=== PATIENT | female | born 1950 | race Caucasian/White ===

== ENCOUNTER 2018-02-05 00:38 | Emergency (ER) | payer OTHER ==
--- NOTE | 2018-02-05 01:00 | EDPHY ---
H & P Stated Complaint: c/o having delusions/hearing voices x 4 month, says thought time to be seen Source: Patient - Medical/Surgical History Hx Asthma: Yes Hx Chronic Respiratory Disease: No Hx Diabetes: No Hx Cardiac Disease: No Hx Renal Disease: No Hx Cirrhosis: No Hx Alcoholism: No Hx HIV/AIDS: No Hx Splenectomy or Spleen Trauma: No Other PMH: schizoaffective disorders, asthma, hypothyroid - Social History Smoking Status: Never smoked Time Seen by Provider: 02/05/18 00:57 HPI/ROS: HPI CHIEF COMPLAINT: Worsening delusions HISTORY OF PRESENT ILLNESS: Patient is a 67-year-old female, she has a history of schizoaffective disorder she presents emergency room by private vehicle after she drove here from her local residence, she states she is feeling more delusional and feeling very dark. She denies wanting to hurt herself or anybody else. Denies suicidal or homicidal ideation. She states she would like to speak to mental health. She is voluntary. Past Medical History: Schizoaffective disorder Past Surgical History: No recent surgical history Social History: Denies daily use of drugs alcohol tobacco. Family History: Noncontributory ROS REVIEW OF SYSTEMS: A comprehensive 10 point review of systems is otherwise negative aside from elements mentioned in the history of present illness. Exam Constitutional triage nursing summary reviewed, vital signs reviewed, awake/ alert. Eyes normal conjunctivae and sclera, EOMI, PERRLA. HENT normal inspection, atraumatic, moist mucus membranes, no epistaxis, neck supple/ no meningismus, no raccoon eyes. Respiratory clear to auscultation bilaterally, normal breath sounds, no respiratory distress, no wheezing. Cardiovascular rate normal, regular rhythm, no murmur, no edema, distal pulses normal. Gastrointestinal soft, non-tender, no rebound, no guarding, normal bowel sounds, no distension, no pulsatile mass. Genitourinary no CVA tenderness. Musculoskeletal no midline vertebral tenderness, full range of motion, no calf swelling, no tenderness of extremities, no meningismus, good pulses, neurovascularly intact. Skin pink, warm, & dry, no rash, skin atraumatic. Neurologic awake, alert and oriented x 3, AAOx3, moves all 4 extremities equally, motor intact, sensory intact, CN II-XII intact, normal cerebellar, normal vision, normal speech. Psychiatric worsening delusions. Heme/Lymph/Immune no lymphadenopathy. Differential Diagnosis: Includes but is not limited to in a particular order mood disorder, schizoaffective disorder, acute psych close this, grave disability. Medical Decision Making: Plan for this patient blood draw for medical clearance. Will have her speak with mental health. Re-evaluation: 0304: Patient has been evaluated by mental health. They would like inpatient psychiatric hospitalization on for this patient. Reason for admission history schizoaffective disorder worsening delusions. 0419: Patient seen evaluated by mental health. Seeking inpatient psychiatric placement. Patient is [facility] patient. Will search for inpatient psychiatric bed with [facility]. 0711AM: Patient signed over to Dr. Hancock 7am shift-change (Dandre العراقي) Constitutional: Initial Vital Signs Temperature (C) 36.5 C 02/05/18 00:43 Heart Rate 120 H 02/05/18 00:43 Respiratory Rate 18 02/05/18 00:43 Blood Pressure 153/106 H 02/05/18 00:43 O2 Sat (%) 94 02/05/18 00:43 O2 Delivery Mode Room Air Allergies/Adverse Reactions: No Known Allergies Allergy (Unverified 02/05/18 00:48) Home Medications: Medication Instructions Recorded Albuterol 02/05/18 Prozac 10 MG (*) 02/05/18 Stelazine 1MG (*) 02/05/18 Synthroid 02/05/18 Medical Decision Making ED Course/Re-evaluation: Patient was accepted at [facility] by Dr. Lo. Transfer paperwork completed. (Meng Hancock) - Data Points Laboratory Results: Laboratory Results 02/05/18 01:05 02/05/18 01:05 Medications Given: Discontinued Medications Lorazepam (Ativan) 1 mg PO ONCE ONE Stop: 02/05/18 02:43 Last Admin: 02/05/18 02:53 Dose: 1 mg Lorazepam (Ativan) 1 mg PO EDNOW ONE Stop: 02/05/18 09:36 Last Admin: 02/05/18 09:36 Dose: 1 mg Departure - Departure Disposition: Other Psych, Not [facility] Clinical Impression: Schizoaffective disorder Qualifiers: Schizoaffective disorder type: unspecified Qualified Code(s): F25.9 - Schizoaffective disorder, unspecified Condition: Fair Referrals: NONE *PRIMARY CARE P,. [Primary Care Provider] - As per Instructions
[2018-02-05 01:17] LABS: PLATELET COUNT 303 10^3/uL (150-400)
[2018-02-05] MEDS ORDERED: LORazepam 1 MG TAB ONE ×2 (02:42→09:33)
[2018-02-05] MEDS ORDERED: LORazepam 1 MG TAB PO ONE ×2 (02:42→09:35)
[2018-02-05 08:57] VITALS: BP 153/97
== END 2018-02-05 09:48 ==
LOC: EEVIPCON 00:38
DX: F25.9 Schizoaffective disorder, unspecified (principal); J45.909 Unspecified asthma, uncomplicated
CPT/HCPCS: 80305; G0480

== ENCOUNTER 2018-03-17 11:21 | Emergency (ER) | payer OTHER ==
--- NOTE | 2018-03-17 11:34 | EDPHY ---
H & P Stated Complaint: Pt tripped and fell; pain to L shoulder Time Seen by Provider: 03/17/18 11:31 HPI/ROS: HPI: This is a 67-year-old female who presents with Chief Complaint: Pt tripped and fell; pain to L shoulder Location: Left shoulder Quality: Injury Duration: 1 hr prior to arrival Signs and Symptoms: No bleeding, no radiation, no numbness, no weakness, no tingling, no LOC, + decreased range of motion, no swelling, + pain, no fever Timing: Acute Severity: 01/23 Context: Patient is right-hand dominant, presents with accidentally tripping over some wires in her house and falling onto her left shoulder. She reports that she felt immediate, moderate pain in the left lateral shoulder. The pain is nonradiating in nature. The pain is worsened with overhead activities. She has not taking anything for the pain. She had a friend drive her to the emergency room. Denies LOC/head injury/neck pain/dizziness/nausea/vomiting/ amnesia. She was ambulatory after the accident. She denies any dizziness/ fevers/urinary symptoms. She is able to move her left wrist and elbow without any difficulties. She does complain of some nausea but she believes that this is related to feeling pain and being extremely anxious. Patient started crying during the interview. Modifying Factors: None Comment: ROS: see HPI Constitutional: No fever, no chills, no weight loss Eyes: No blurred vision Respiratory: No shortness of breath, no cough Cardiovascular: No chest pain Gastrointestinal: No nausea, no vomiting no diarrhea Genitourinary: No dysuria Extremities: No myalgias Neurologic: No weakness, no numbness Skin: No rashes Hematologic: No bruising, no bleeding MEDICAL/SURGICAL/SOCIAL HISTORY: Medical history: schizoaffective disorders, asthma, hypothyroid, HTN Surgical history: Denies Social history: Lives alone. Retired. CONSTITUTIONAL: Elderly white female, awake and alert, no obvious distress HEENT: Atraumatic and normocephalic. NECK: supple, no midline tenderness, flexion 45 degrees, extension 45 degrees, right and left lateral flexion 45 degrees. No meningismus. Cardiovascular: Normal S1/S2, regular rate, regular rhythm, without murmur rub or gallop. PULMONARY/CHEST: Symmetrical and nontender. no crepitus. Clear to auscultation bilaterally. Good air movement. No accessory muscle usage. ABDOMEN: Soft, nondistended, nontender, no ecchymosis. BACK: No midline tenderness, no paraspinous spasm, deep tendon reflexes 2/2. EXTREMITIES: 2/2 pulses, strength 5/5, SHOULDER: Held at 90 degree flexion against chest; tenderness to palpation over the AC and SA joint; no deformity appreciated. Left ELBOW: Full extension to 180, flexion to 150, no tenderness over medial epicondyle, no tenderness over lateral epicondyle, no effusion. DIP/PIP/MCP flexion/extension intact with good light touch sensation. no deformities, no clubbing, no cyanosis or edema. NEUROLOGICAL: no focal neuro deficits. GCS 15. Light touch sensation intact. SKIN: Warm and dry, no erythema. no rash. Good capillary refill. Source: Patient Exam Limitations: No limitations - Personal History Current Tetanus Diphtheria and Acellular Pertussis (TDAP): Unsure - Medical/Surgical History Hx Asthma: Yes Hx Chronic Respiratory Disease: No Hx Diabetes: No Hx Cardiac Disease: No Hx Renal Disease: No Hx Cirrhosis: No Hx Alcoholism: No Hx HIV/AIDS: No Hx Splenectomy or Spleen Trauma: No Other PMH: schizoaffective disorders, asthma, hypothyroid. HTN - Social History Smoking Status: Never smoked Constitutional: Initial Vital Signs Temperature (C) 36.7 C 03/17/18 11:22 Heart Rate 96 03/17/18 11:22 Respiratory Rate 18 03/17/18 11:22 Blood Pressure 129/86 H 03/17/18 11:22 O2 Sat (%) 94 03/17/18 11:22 O2 Delivery Mode Room Air Allergies/Adverse Reactions: No Known Allergies Allergy (Verified 03/17/18 11:21) Home Medications: Medication Instructions Recorded Albuterol 02/05/18 Prozac 10 MG (*) 02/05/18 Stelazine 1MG (*) 02/05/18 Synthroid 02/05/18 Metoprolol Tartrate [Lopressor 25 25 mg PO 03/17/18 mg (*)] oxyCODONE/APAP 5/325 [Percocet 1 - 2 tab PO Q4H PRN #10 tab 03/17/18 5/325 (*)] Medical Decision Making - Diagnostics Imaging Results: Imaging Impressions Humerus X-Ray 03/17/18 11:34 Impression: Proximal left humeral fractures. 2. Left humerus, 2 views History: Pain post fall Findings: The proximal transverse humeral neck and greater tuberosity fractures are confirmed. The more distal humerus is normal. Impression: Normal distal humerus. Shoulder X-Ray 03/17/18 11:34 Impression: Proximal left humeral fractures. 2. Left humerus, 2 views History: Pain post fall Findings: The proximal transverse humeral neck and greater tuberosity fractures are confirmed. The more distal humerus is normal. Impression: Normal distal humerus. Chest X-Ray 03/17/18 11:51 Impression: 1. Minor T7 compression of unknown age 2. No rib or clavicle fracture identified. Procedures: Procedure: Splint placement. A left sling was applied by the emergency room factory maintenance technician. After application of the splint I returned and re-examined the patient. The splint was adequately immobilizing the joint and distal to the splint the patient's circulation and sensation was intact. ED Course/Re-evaluation: Given ibuprofen 800 mg and Zofran upon arrival. Left shoulder x-ray and left humerus x-ray ordered. 1140: Notified by assistant professor of radiology that patient now complaining of left lateral rib pain. Chest x-ray ordered X-rays reviewed my read show nondisplaced; left humeral neck fracture Placed in sling; pain controlled; Ortho follow-up; prescription for Percocet provided Patient has no back pain; reports that she fell in the past; suspect minor T7 compression fracture is old. No signs of neurovascular compromise/tenting of skin/compartment syndrome/ extremities and joints examined above and below area of concern and are neurovascularly intact. This patient was seen under the supervision of my secondary supervising physician. I evaluated care for this patient independently. Differential Diagnosis: Differential diagnosis includes but is not limited to rotator cuff injury, humerus fracture, brachial plexus injury, shoulder strain, clavicle fracture. - Data Points Medications Given: Discontinued Medications Acetaminophen (Tylenol) 650 mg PO EDNOW ONE Stop: 03/17/18 11:45 Last Admin: 03/17/18 11:48 Dose: 650 mg Ibuprofen (Motrin) 800 mg PO EDNOW ONE Stop: 03/17/18 11:36 Last Admin: 03/17/18 11:43 Dose: Not Given Ondansetron HCl (Zofran Odt) 4 mg PO EDNOW ONE Stop: 03/17/18 11:36 Last Admin: 03/17/18 11:38 Dose: 4 mg Departure - Departure Disposition: Home, Routine, Self-Care Clinical Impression: Fracture of neck of left humerus Qualifiers: Encounter type: initial encounter Fracture type: closed Qualified Code(s): S42.212A - Unspecified displaced fracture of surgical neck of left humerus, initial encounter for closed fracture Accidental fall Qualifiers: Encounter type: initial encounter Qualified Code(s): W19.XXXA - Unspecified fall, initial encounter Condition: Good Instructions: Oxycodone/Acetaminophen (By mouth), Arm Fracture in Adults (ED), How to Use a Sling (ED) Additional Instructions: Sleep semirecumbent (eg, in a reclining chair or propped up with pillows or a wedge in bed) with a sling. Follow-up with Orthopedics in 1 week at which time x-rays will be the repeated. They will discuss with you if conservative versus surgical treatment is needed. Wear your sling / except shower. FOLLOW-UP CARE Total healing time is typically 6 to 12 weeks for proximal humerus fractures. Early callus formation usually occurs at four to six weeks. Take Tylenol 650 mg every 4 hours and/or Ibuprofen 600 mg every 8 hours with food as needed for pain. Use Percocet every 6 hours as needed for severe/break through pain. Do not use Tylenol and Percocet concomitantly. Apply ice for 30 minutes at a time; 2-3 times per day for the next 1-2 days. Return to the ER immediately if you experience new or worsening pain, discoloration, numbness, tingling, or any other symptoms that concern you. Follow-Up: Please follow-up as noted above. Follow up sooner if your condition worsens or if you develop any new problems Call as soon as possible for an appointment. Be clear when you call for an appointment that this is an Emergency Department follow-up. Contact the Emergency Department if you are having trouble arranging follow up care. Our referrals are not based on your insurance network. When time allows, contact your insurance carrier to verify the referral physician is in your plan. If not, get a referral for an in-telecommunications network planner. Please ask us if you have any questions. Referrals: Alfredito Luke MD [Medical Doctor] - As per Instructions Prescriptions: oxyCODONE/APAP 5/325 [Percocet 5/325 (*)] 1 - 2 tab PO Q4H PRN #10 tab PRN Reason: Pain, Severe
[2018-03-17] MEDS ORDERED: ONDANSETRON DISINTEGRATING 4 MG TAB PO ONE (11:35)
[2018-03-17] MEDS ORDERED: IBUPROFEN 800 MG TAB PO ONE (11:35)
[2018-03-17] MEDS ORDERED: ACETAMINOPHEN 325 MG TAB PO ONE (11:44)
[2018-03-17 13:14] VITALS: BP 118/86
== END 2018-03-17 13:14 | disposition home or self-care (01) ==
DX: S42.212A Unspecified displaced fracture of surgical neck of left humerus, initial encounter for closed fracture (principal); I10 Essential (primary) hypertension; J45.909 Unspecified asthma, uncomplicated; W01.0XXA Fall on same level from slipping, tripping and stumbling without subsequent striking against object, initial encounter; Y92.009 Unspecified place in unspecified non-institutional (private) residence as the place of occurrence of the external cause

== ENCOUNTER 2018-08-25 07:33 | Inpatient (IN) | payer OTHER ==
--- NOTE | 2018-08-25 07:30 | EDPHY ---
H & P Time Seen by Provider: 08/25/18 07:32 Constitutional: Initial Vital Signs Temperature (C) 36.9 C 08/25/18 07:35 Heart Rate 91 08/25/18 07:35 Respiratory Rate 18 08/25/18 07:35 Blood Pressure 181/115 H 08/25/18 07:35 O2 Sat (%) 93 08/25/18 07:35 O2 Delivery Mode Nasal Cannula O2 (L/minute) 2 Allergies/Adverse Reactions: bacitracin [From Neosporin ([id number])] Allergy (Verified 08/25/18 07:37) neomycin [From Neosporin ([id number])] Allergy (Verified 08/25/18 07:37) polymyxin B [From Neosporin ([id number]-glj-[id number])] Allergy (Verified 08/25/18 07:37) Sulfa (Sulfonamide Antibiotics) Allergy (Verified 08/25/18 07:37) Home Medications: Medication Instructions Recorded Albuterol 02/05/18 Prozac 10 MG (*) 02/05/18 Stelazine 1MG (*) 02/05/18 Synthroid 02/05/18 Metoprolol Tartrate [Lopressor 25 25 mg PO 03/17/18 mg (*)] oxyCODONE/APAP 5/325 [Percocet 1 - 2 tab PO Q4H PRN #10 tab 03/17/18 5/325 (*)] Medical Decision Making - Diagnostics Imaging Results: Imaging Impressions Lumbar Spine X-Ray 08/25/18 07:35 Impression: 1. Mild compression fractures involving L2 and L3 centra, with diffuse bone demineralization. 2. Lrdmxijk-ee-dxufnm L4-L5 and L5-S1 degenerative disk space narrowing with facet hypertrophy. 3. Incompletely-evaluated increased soft tissue attenuation in the posterior medial left lower quadrant of the abdomen. If there is further clinical concern regarding the patient's symptoms, CT imaging could be considered. Sacrum and Coccyx (3 Views) at 7:24 AM: There appears to be a nondisplaced cortical fracture along the dorsal upper sacrum seen on the lateral view. The sacral arcuate lines are well-contoured. There is no SI joint or symphysis pubis diastases. Impression: Suspicious for a nondisplaced upper dorsal cortical coccygeal fracture. Portable AP Supine Pelvis, at 7:28 AM: The bones are mildly demineralized. Each femoral head is well-seated within its respective acetabulum, with no fracture or dislocation identified. There is a mild lower levolumbar curvature, and there is a mild cortical endplate compression deformity again noted along the right L3 level. The iliac crests are well-contoured. The ischial pubic rami are intact. Impression: There is no acute abnormality with respect to the hips. Findings were discussed with Sin Cortes MD at 8:32, on 08/25/2018. He has requested CT imaging of the lumbar spine for further assessment. Pelvis X-Ray 08/25/18 07:35 Impression: 1. Mild compression fractures involving L2 and L3 centra, with diffuse bone demineralization. 2. Zsjwhbya-jw-jgdflu L4-L5 and L5-S1 degenerative disk space narrowing with facet hypertrophy. 3. Incompletely-evaluated increased soft tissue attenuation in the posterior medial left lower quadrant of the abdomen. If there is further clinical concern regarding the patient's symptoms, CT imaging could be considered. Sacrum and Coccyx (3 Views) at 7:24 AM: There appears to be a nondisplaced cortical fracture along the dorsal upper sacrum seen on the lateral view. The sacral arcuate lines are well-contoured. There is no SI joint or symphysis pubis diastases. Impression: Suspicious for a nondisplaced upper dorsal cortical coccygeal fracture. Portable AP Supine Pelvis, at 7:28 AM: The bones are mildly demineralized. Each femoral head is well-seated within its respective acetabulum, with no fracture or dislocation identified. There is a mild lower levolumbar curvature, and there is a mild cortical endplate compression deformity again noted along the right L3 level. The iliac crests are well-contoured. The ischial pubic rami are intact. Impression: There is no acute abnormality with respect to the hips. Findings were discussed with Sin Cortes MD at 8:32, on 08/25/2018. He has requested CT imaging of the lumbar spine for further assessment. Sacrum and Coccyx X-Ray 08/25/18 07:35 Impression: 1. Mild compression fractures involving L2 and L3 centra, with diffuse bone demineralization. 2. Pywojerh-io-vqmpmq L4-L5 and L5-S1 degenerative disk space narrowing with facet hypertrophy. 3. Incompletely-evaluated increased soft tissue attenuation in the posterior medial left lower quadrant of the abdomen. If there is further clinical concern regarding the patient's symptoms, CT imaging could be considered. Sacrum and Coccyx (3 Views) at 7:24 AM: There appears to be a nondisplaced cortical fracture along the dorsal upper sacrum seen on the lateral view. The sacral arcuate lines are well-contoured. There is no SI joint or symphysis pubis diastases. Impression: Suspicious for a nondisplaced upper dorsal cortical coccygeal fracture. Portable AP Supine Pelvis, at 7:28 AM: The bones are mildly demineralized. Each femoral head is well-seated within its respective acetabulum, with no fracture or dislocation identified. There is a mild lower levolumbar curvature, and there is a mild cortical endplate compression deformity again noted along the right L3 level. The iliac crests are well-contoured. The ischial pubic rami are intact. Impression: There is no acute abnormality with respect to the hips. Findings were discussed with Sin Cortes MD at 8:32, on 08/25/2018. He has requested CT imaging of the lumbar spine for further assessment. Lumbar Spine CT 08/25/18 08:23 Impression: 1. Acute mild/moderate cortical endplate fractures at the L2 and L3 centra, with no dorsal retropulsion or posterior malalignment. 2. Multilevel degenerative changes throughout the lumbar spine, as above- detailed. 3. Age-indeterminate coccygeal fracture deformity at the C1 level. 4. Left lower retroperitoneal indeterminate coarse calcifications at the root of the mesentery, which could be related to a chronic retractile calcific mesenteritis/panniculitis, although a carcinoid tumor cannot be excluded. Biochemical testing for carcinoid may be of benefit, and formal contrast enhanced CT imaging of the abdomen and pelvis could be considered in follow-up. Findings were discussed with Sin Cortes MD at 9:14, on 08/25/2018. Imaging: Discussed imaging studies w/ freight caller Radiologist, I viewed and interpreted images myself ED Course/Re-evaluation: CHIEF COMPLAINT: Fall, sacral pain HISTORY OF PRESENT ILLNESS: The patient is a 67 y/o female with a history of schizoaffective disorders and hypertension arriving via EMS after a fall at 6:00, 1.5 hours ago. Per EMS the patient was sitting on her toilet when she slipped off and landed on her sacrum. She denies head injury, loss of consciousness, numbness, paresthesias, urinary or bowel complaints. Since the fall she has had sacral pain. Since arriving in the emergency department the pain has started to migrate into her lower back. She is currently stating "I need something for shock". She does take a baby aspirin daily but is not anticoagulated. No headache, chest pain, shortness of breath, abdominal pain, fever. REVIEW OF SYSTEMS: A comprehensive 10 system review of systems is otherwise negative aside from elements mentioned in the history of present illness and medical decision making. PHYSICAL EXAM: HR, BP, O2 Sat, RR. Temp noted General Appearance: Alert, well hydrated, appropriate, and non-toxic appearing. Head: Atraumatic without scalp tenderness or obvious injury Eyes: Pupils equal, round, reactive to light and accommodation, EOMI, no trauma , no injection. Ears: Clear bilaterally, no perforation, normal landmarks Nose: Atraumatic, no rhinorrhea, clear. Throat: There is no erythema or exudates, no lesions, normal tonsils, mucus membranes moist. Neck: Supple, 2+ carotid upstroke, nontender, no lymphadenopathy. Respiratory: No retractions, no distress, no wheezes, and no accessory muscle use. Lungs are clear to auscultation bilaterally. Cardiovascular: Regular rate and rhythm, no murmurs, rubs, or gallops. Bilateral carotid, radial, dorsalis pedis, and posterior tibial pulses intact. Good capillary refill all extremities. Gastrointestinal: Abdomen is soft, nontender, non-distended, no masses, no rebound, no guarding, no peritoneal signs. Musculoskeletal: Normal active ROM of all extremities, atraumatic. Minor tenderness to the sacral spine. Neurological: Alert, appropriate, and interactive. The patient has normal DTRs and non-focal cranial nerves, motor, sensory, and cerebellar exam. Skin: No rashes, good turgor, no nodules on palpation. Past medical history: schizoaffective disorders, asthma, hypothyroid, hypertension Past surgical history: Denies Family history: Denies Social history: Lives alone in [place], single, not employed, PCP at [facility] DIAGNOSTICS/PROCEDURES/CRITICAL CARE TIME: Lumbar/sacral x-ray: Possible L2/[address]: L2/3 compression fracture. There is an indeterminant calcification in the mesentery below the pancreas that is possibly a carcinoid tumor. DIFFERENTIAL DIAGNOSIS: The differential diagnosis for the patient's back pain included but was not limited to musculoskeletal pain, epidural abscess, herniated disk, spinal fracture, and intra-abdominal causes including urinary system. MEDICAL DECISION MAKING: The patient is a 67 y/o female with a history of schizoaffective disorders and hypertension arriving via EMS after a fall at 6:00, 1.5 hours ago. She landed on her sacrum and has since had sacral and lower back pain. On exam she is moving her legs everywhere and wiggling her toes without difficulty. Due to the mechanism of the fall and the patient's complaint. Lumbar and sacral x-ray ordered. 0750: Patient is still complaining of pain and states that she normally takes Hycodan elixir and Oxycodan. 25 mcg IV Fentanyl administered. 0823: I reviewed patient's x-ray which reveals a possible L2/3 compression fracture; lumbar spine CT ordered. 0830: I spoke with Dr. Hansen, radiologist, who agrees with my x-ray findings. 0850: I reviewed patient's CT findings which confirm the L2/3 compression fracture. 0859: I consulted with Dr. Ribera, neurosurgeon, regarding patient's CT findings ; he has advised placing the patient in a Jewitt brace. 0915: I spoke with Dr. Hansen, regarding the patient's CT findings. There is an indeterminant calcification in the mesentery below the pancreas that is possibly a carcinoid tumor. She will need biochemical testing performed by her PCP at [facility]. 0926: I spoke with Caren, the PCP dining chair seat cushion trimmer from [facility], regarding this patient. She will ensure that the patient has the proper follow up testing with her PCP. 0927: Reassessed patient and discussed CT findings. I have advised her to follow up with Dr. Ribera in his clinic. Return precautions provided; patient is comfortable with this plan. 1125: I spoke with Danielle, from case management, regarding this patient. 1158: Sheldon has arrived to the emergency department to fit the patient with a Jewitt brace. 10mg PO Oxycodone administered. She is safe to be discharged after she is fitted with the brace. 1230: manager commercial spoke with me and reports that the patient cannot walk due to the pain. We will admit and transfer the patient to [facility]. 1233: I consulted with Caren from [facility], who would like the patient to be admitted to this hospital. 1240: I consulted with the hospitalist service, Dr. Ribera accepts admission of this patient. - Data Points Medications Given: Discontinued Medications Fentanyl (Sublimaze) 25 mcg IVP EDNOW ONE Stop: 08/25/18 07:52 Last Admin: 08/25/18 07:53 Dose: 25 mcg Ondansetron HCl (Zofran) 4 mg IVP EDNOW ONE Stop: 08/25/18 08:13 Last Admin: 08/25/18 08:15 Dose: 4 mg Oxycodone HCl (Oxycodone Ir) 10 mg PO EDNOW ONE Stop: 08/25/18 12:00 Last Admin: 08/25/18 12:00 Dose: 5 mg Departure - Departure Disposition: Home, Routine, Self-Care Clinical Impression: Unable to ambulate Compression fracture of L2 Qualifiers: Encounter type: initial encounter Fracture type: closed Qualified Code(s): S32.020A - Wedge compression fracture of second lumbar vertebra, initial encounter for closed fracture Compression fracture of L3 lumbar vertebra Qualifiers: Encounter type: initial encounter Fracture type: closed Qualified Code(s): S32.030A - Wedge compression fracture of third lumbar vertebra, initial encounter for closed fracture Condition: Fair Instructions: Vertebral Compression Fracture (ED) Additional Instructions: 1. Where the Jewitt brace as prescribed. 2. Follow up with Dr. Ribera, neurosurgeon, in his office in the next week. 3. Return to the emergency department for severe pain, fever, numbness, difficulty walking, change in location or nature of pain or other concerns. Referrals: Gabriele Ribera MD [Medical Doctor] - As per Instructions [facility] ,. [Edm Groups for Call Sched] - As per Instructions Report Scribed for: Sin Cortes Report Scribed by: Melissa Carty Date of Report: 08/25/18 Time of Report: 07:31
[2018-08-25] MEDS ORDERED: fentaNYL 100 MCG/2 ML INJ IVP ONE (07:51)
[2018-08-25] MEDS ORDERED: ONDANSETRON 4 MG/2 ML VIAL IVP ONE (08:12)
[2018-08-25] MEDS ORDERED: oxyCODONE IR 5 MG TAB PO ONE (11:59)
[2018-08-25] MEDS ORDERED: ONDANSETRON 4 MG/2 ML VIAL IVP PRN (14:13)
[2018-08-25] MEDS ORDERED: ACETAMINOPHEN 325 MG TAB PO PRN (14:13)
[2018-08-25] MEDS ORDERED: FLUTICASONE NASAL 120 SPRAYS/16 GM MDI EACHNARE PRN (14:15)
--- NOTE | 2018-08-25 14:41 | PDGENHP ---
History and Physical - Chief Complaint fall - History of Present Illness 67yo F with schizoaffective d/o, osteopenia presents after fall this morning with severe lower back pain. Got up to go to the bathroom around 6am and felt fine. While in the bathroom she slipped and fell onto her tailbone. She was in severe pain and pushed her Life Alert bracelet and EMS arrived. She was unable to ambulate due to the pain but denies lower extremity weakness/numbness. She did not strike her head and does not believe she lost consciousness however she does have some amnesia to the whole event. Denies urinary/bowel incontinence. Of note, she broke her left arm after fall from standing height in March. This was non-surgically managed. She had DEXA scan at [place] after this which reportedly showed osteopenia. In the ED, imaging demonstrated acute L2-3 vertebral compression fractures. Neurosurgery was consulted who recommended Jewitt brace. Patient was about to be discharged to home with follow up but was unable to ambulate 2/2 back pain. She also felt dizzy when standing which she attributes to the oxycodone she received. She is being admitted for pain management. History Information - Allergies/Home Medication List Allergies/Adverse Reactions: bacitracin [From Neosporin ([id number])] Allergy (Verified 08/25/18 07:37) neomycin [From Neosporin ([id number])] Allergy (Verified 08/25/18 07:37) polymyxin B [From Neosporin ([id number]-pce-stkyo)] Allergy (Verified 08/25/18 07:37) Sulfa (Sulfonamide Antibiotics) Allergy (Verified 08/25/18 07:37) Home Medications: Albuterol [Proventil Inhaler HFA (*)] 2 puffs IH BID PRN 02/05/18 [Last Taken Unknown] FLUoxetine [Prozac 10 MG (*)] 20 mg PO DAILY 02/05/18 [Last Taken 08/24/18] Trifluoperazine HCl [Stelazine 5MG (*)] 7.5 mg PO HS 02/05/18 [Last Taken ] Aspirin [Aspirin 81mg (*)] 81 mg PO HS 08/25/18 [Last Taken 08/24/18] Beclomethasone Qvar 80 [Qvar 80 Redihaler (*)] 2 inh IH BID 08/25/18 [Last Taken Unknown] Fluticasone Nasal [Flonase Nasal [place] (RX)] 2 sprays EACHNARE DAILY PRN [Last Taken Unknown] Herbals/Supplements -Info Only 1 ea PO DAILY 08/25/18 [Last Taken Unknown] Hydrochlorothiazide [HCTZ (*)] 12.5 mg PO DAILY 08/25/18 [Last Taken 08/24/18] Levothyroxine [Synthroid 75 mcg (*)] 75 mcg PO DAILY06 08/25/18 [Last Taken 07/03] Omeprazole 20 mg PO DAILY 08/25/18 [Last Taken Unknown] I have personally reviewed and updated: family history, medical history, social history, surgical history - Past Medical History Additional medical history: schizoaffective disorder, HTN, osteopenia, left humerus fracture (non-displaced), asthma - Surgical History Additional surgical history: hernia surgery - Family History Additional family history: no family history of osteoporosis or fractures - Social History Smoking Status: Never smoked Alcohol Use: None Drug Use: None Additional social history: Lives independently Review of Systems Review of Systems: ROS: 10pt was reviewed & negative except for what was stated in HPI & below Physical Exam Physical Exam: Temp Pulse Resp BP Pulse Ox 36.6 C 87 16 147/90 H 92 08/25/18 13:37 08/25/18 13:37 08/25/18 13:37 08/25/18 13:37 08/25/18 13:37 O2 (L/minute) 2.5 Constitutional: no apparent distress, appears nourished, not in pain Eyes: PERRL, anicteric sclera, EOMI Ears, Nose, Mouth, Throat: moist mucous membranes, hearing normal, ears appear normal, no oral mucosal ulcers Cardiovascular: regular rate and rhythym, no murmur, rub, or gallop, No edema Respiratory: no respiratory distress, no rales or rhonchi, clear to auscultation Gastrointestinal: normoactive bowel sounds, soft, non-tender abdomen, no palpable masses Genitourinary: no bladder fullness, no bladder tenderness Skin: warm, normal color, no rashes or abrasions, no fluctuance, no induration, No mottled Musculoskeletal: full muscle strength, no muscle tenderness, normal joint ROM, no joint effusions Neurologic: AAOx3, other (5/5 strength in BLE, sensation to light touch intact, no ankle clonus, 2+ b/l pateler reflexes) Psychiatric: interacting appropriately, not anxious, not encephalopathic, thought process linear Assessment & Plan Assessment: 67yo F with schizoaffective d/o, osteopenia presents after fall this morning with severe lower back pain. Imaging shows acute L2-3 vertebral compression fractures. She is being admitted for pain control as she is unable to ambulate. Plan: #Acute L2-3 vertebral compression fractures: Neurologically intact - Neurosurgery consulted, no surgical intervention - Jewitt brace - PT/OT - Pain control - If not improving, consider vertebroplasty/kyphoplasty #Fall: Mechanical in nature. No LOC or headstrike. Will get PT/OT as above. #Osteoporosis: New diagnosis with compression fractures from standing height. - Recommend discussing oral bisphosphonate therapy with PCP - Checking vitamin D level, will likely need vit D/calcium supplementation at discharge - She is on an inhaled steroid for her asthma, may need to consider dc'ing this if able #Mesenteric calcification: Left lower retroperitoneal. Noted on CT. DDx includes chronic calcific mesenteritis/panniculitis vs carcinoid tumor - Recommend f/u with PCP for biochemical testing to r/o carcinoid #Acute hypoxemic resp insufficiency: On 2L. Related to atelectasis from splinting. Wean as able. #Asthma: No acute flare. Continue home inhalers. #HTN: Home meds. #Schizoaffective d/o: Compensated. Home meds. #Hypothyroidism: Checking TSH, continue LT4. VTE ppx: LMWH Code: full Diet: regular Dispo: Admit under observation for pain management. Unsafe to discharge as unable to ambulate.
[2018-08-25 14:48] LABS: PLATELET COUNT 330 10^3/uL (150-400)
--- NOTE | 2018-08-25 15:49 | ASMTCMCOM ---
CM Note CM Note Notes: Pt presented to the ED via EMS after having a fall at home this morning. Per EMS, pt had slipped off of the toilet and landed on her sacrum. Pt admitted for acute L2-L3 compression fracture and inability to ambulate due to pain. Pt was fit w/a Jewitt brace while in the ED. Per chart review, if pt's pain or ability to ambulate does not improve, may consider vertebroplasty/kyphoplasty. [facility] Pt has a history of schizoaffective disorder, hypothyroidism, HTN, osteopenia, and asthma. In March 2018, pt had a mechanical fall that resulted in left humeral neck fracture. Pt had reported at that time that she has had had previous falls as well. We discussed the possibility of pt returning home w/a combination of skilled and non-skilled HC but pt states she would not be able to afford the non-skilled help she feels she needs, and she overall does not feel safe returning home even if her elderly mother, Pauline Soliman (c:[phone]) came to stay with her overnight. Pauline lives in [place] and is currently on her way to [facility]. Pt has [employer] insurance and was hoping to be transferred for admission to [facility] but per ED MD who spoke w/Caren at [facility], they did not approve the transfer but they did approve pt to be admitted at [facility]. PT/OT ramoneals ordered. Exact DC needs TBD but anticipate pt to either DC home w/HC or to SNF rehab. CM to follow. Date Signed: 08/25/2018 03:48 PM Electronically Signed By:Danielle Johnson RN
[2018-08-25] MEDS: oxyCODONE IR 5 MG TAB PO PRN ×2 (16:15→21:04)
[2018-08-25] MEDS: IBUPROFEN 600 MG TAB PO PRN ×2 (16:16→23:08)
[2018-08-25] MEDS: ONDANSETRON DISINTEGRATING 4 MG TAB PO PRN (16:16)
[2018-08-25] MEDS ORDERED: HYDROCHLOROTHIAZIDE 25 MG TAB PO SCH (16:46)
[2018-08-25] MEDS: TRIFLUOPERAZINE HCL 5 MG TAB PO SCH (21:00)
[2018-08-25] MEDS: ASPIRIN 81 MG CHEWABLE TAB PO SCH (21:00)
[2018-08-25] MEDS: BECLOMETHASONE QVAR 80 REDIHALER 120 INH/10.6 GM MDI IH SCH (21:07)
[2018-08-26] MEDS: oxyCODONE IR 5 MG TAB PO PRN ×5 (04:33→23:26)
[2018-08-26] MEDS ORDERED: LEVOTHYROXINE 75 MCG TAB PO SCH (06:00)
[2018-08-26] MEDS ORDERED: CHOLECALCIFEROL VIT D3 50,000 UNIT CAP PO ONE (08:07)
[2018-08-26] MEDS ORDERED: BISACODYL 10 MG SUPP PR PRN (08:08)
[2018-08-26] MEDS ORDERED: POLYETHYLENE GLYCOL 3350 17 GM PKT PO PRN (08:08)
[2018-08-26] MEDS ORDERED: LACTULOSE 20 GM/30 ML UDCUP PO PRN (08:08)
[2018-08-26] MEDS ORDERED: MAGNESIUM HYDROXIDE 30 ML UDCUP PO PRN (08:08)
[2018-08-26] MEDS ORDERED: HYDROCHLOROTHIAZIDE 25 MG TAB PO SCH (09:00)
[2018-08-26] MEDS: ENOXAPARIN 40 MG/0.4 ML SYR SC SCH (09:24)
[2018-08-26] MEDS: SENNOSIDES/DOCUSATE SODIUM TAB PO SCH ×2 (09:24→20:57)
[2018-08-26] MEDS: PANTOPRAZOLE SODIUM 40 MG TAB PO SCH (09:24)
[2018-08-26] MEDS: HYDROCHLOROTHIAZIDE 25 MG TAB PO SCH (09:24)
[2018-08-26] MEDS: FLUoxetine 10 MG CAP PO SCH (09:25)
[2018-08-26] MEDS: ALBUTEROL 60 PUFFS/8 GM MDI IH PRN (09:38)
[2018-08-26] MEDS: BECLOMETHASONE QVAR 80 REDIHALER 120 INH/10.6 GM MDI IH SCH ×2 (09:38→21:03)
[2018-08-26] MEDS: ACETAMINOPHEN 325 MG TAB PO SCH ×3 (13:37→23:27)
--- NOTE | 2018-08-26 13:55 | HOSPPROG ---
Hospitalist Progress Note Assessment/Plan: 67yo F with schizoaffective d/o, osteopenia presents after mechanical fall at home with severe lower back pain. Imaging shows acute L2-3 vertebral compression fractures. #Acute L2-3 vertebral compression fractures: Neurologically intact - Neurosurgery consulted, no surgical intervention - [place] brace - PT/OT - Pain control OK with current meds - If not improving, consider vertebroplasty/kyphoplasty (which she declines currently) -should would prefer SNF if possible bc lives alone #Fall: Mechanical -fall risk as second fall/fracture this yr #Osteoporosis: New diagnosis with compression fractures from standing height. -recommend treatment as outpt bc of chronic steroid use -vitamin D level low, supplement ordered weekly [id number] #Mesenteric calcification: Left lower retroperitoneal. Noted on CT. DDx includes chronic calcific mesenteritis/panniculitis vs carcinoid tumor - Recommend f/u with PCP for biochemical testing to r/o carcinoid as outpt #Acute hypoxemic resp insufficiency -on 2L NC -encourage deep breathing/IS -wean O2 #Asthma: No acute flare. Continue home inhalers. #HTN: Home meds. #Schizoaffective d/o: Compensated. Home meds. #Hypothyroidism -TSH elevated -increased replacement dose MARIAMA -PPI, add on H2 DVT prophy- lovenox Code: full PCP- [facility] Dispo: Admit under observation for pain management. Unsafe to discharge as unable to ambulate. Need to review with [place] if change to admit needed/SNF needed Subjective: Says pain improved with meds but needs help and is scared to go home alone. No SOB/d/CP. Has had some mild nausea, no V. Has MARIAMA. No problems with these pain meds prev causing N. Objective: Vital Signs Temp Pulse Resp BP Pulse Ox 98.3 F 86 13 131/79 H 96 08/26/18 11:26 08/26/18 11:26 08/26/18 11:26 08/26/18 11:26 08/26/18 11:26 Laboratory Results 08/25/18 14:15 08/25/18 14:15 08/25/18 08/26/18 08/27/18 11:59 11:59 11:59 Intake Total 2100 Output Total 3300 Balance -1200 - Physical Exam Constitutional: no apparent distress, appears nourished Eyes: PERRL, anicteric sclera Ears, Nose, Mouth, Throat: moist mucous membranes, hearing normal Cardiovascular: regular rate and rhythym, no murmur, rub, or gallop Respiratory: no respiratory distress, no rales or rhonchi, clear to auscultation Gastrointestinal: normoactive bowel sounds, soft, non-tender abdomen, no palpable masses Skin: warm, normal color Musculoskeletal: other (in [place] brace) Psychiatric: interacting appropriately, not encephalopathic, anxious ICD10 Worksheet Patient Problems: Problems Problem Status Onset Compression fracture of L2 Acute Compression fracture of L3 lumbar vertebra Acute Unable to ambulate Acute
[2018-08-26] MEDS: FAMOTIDINE 20 MG TAB PO SCH ×2 (17:16→20:58)
[2018-08-26] MEDS: IBUPROFEN 600 MG TAB PO PRN (18:52)
[2018-08-26] MEDS: ASPIRIN 81 MG CHEWABLE TAB PO SCH (20:57)
[2018-08-26] MEDS: TRIFLUOPERAZINE HCL 5 MG TAB PO SCH (20:58)
[2018-08-27] MEDS: LEVOTHYROXINE 88 MCG TAB PO SCH (04:58)
[2018-08-27] MEDS: ACETAMINOPHEN 325 MG TAB PO SCH ×4 (04:59→23:21)
[2018-08-27] MEDS: IBUPROFEN 600 MG TAB PO PRN ×2 (04:59→17:00)
[2018-08-27] MEDS: oxyCODONE IR 5 MG TAB PO PRN ×5 (05:00→21:55)
--- NOTE | 2018-08-27 08:28 | HOSPPROG ---
Hospitalist Progress Note Assessment/Plan: #Acute L2-3 fracture -no surgical intervention, Jewitt brace -spoke with at [facility]; not candidate for rehab. They will arrange home therapies, DEMOND, RN -add Debbie. JEANNA Ribera #Osteoporosis -high-dose Vit D #Asthma: no exacerbation #Acute hypoxic resp failure #Schizoaffective d/o: home meds #Mesenteric calcification #Hypothyroidism: LT4 #HTN: BP ok here, not on outpatient meds #Diet: regular #Disp: DC home tomorrow if pain well-controlled Subjective: c/o back spasm this morning Objective: Vital Signs Temp Pulse Resp BP Pulse Ox 36.4 C 82 15 109/73 94 08/27/18 08:00 08/27/18 08:00 08/27/18 08:00 08/27/18 08:00 08/27/18 08:00 Laboratory Results 08/25/18 14:15 08/25/18 14:15 08/26/18 08/27/18 08/28/18 05:59 05:59 05:59 Intake Total 2100 2400 Output Total 2700 1800 Balance -600 600 - Time Spent With Patient Time Spent with Patient: greater than 35 minutes Time Spent with Patient: Greater than 35 minutes spent on this patients care, greater than 50% of time spent counseling, educating, and coordinating care regarding the above mentioned plan. - Physical Exam Constitutional: no apparent distress Eyes: PERRL Ears, Nose, Mouth, Throat: moist mucous membranes Cardiovascular: regular rate and rhythym Respiratory: no respiratory distress Gastrointestinal: normoactive bowel sounds Musculoskeletal: other (Jewitt brace in place) Neurologic: CN II-XII Intact Psychiatric: anxious ICD10 Worksheet Patient Problems: Problems Problem Status Onset Compression fracture of L2 Acute Compression fracture of L3 lumbar vertebra Acute Unable to ambulate Acute
[2018-08-27] MEDS: ONDANSETRON DISINTEGRATING 4 MG TAB PO PRN (08:29)
[2018-08-27] MEDS: ENOXAPARIN 40 MG/0.4 ML SYR SC SCH (08:30)
[2018-08-27] MEDS: FLUoxetine 10 MG CAP PO SCH (09:39)
[2018-08-27] MEDS: HYDROCHLOROTHIAZIDE 25 MG TAB PO SCH (09:39)
[2018-08-27] MEDS: SENNOSIDES/DOCUSATE SODIUM TAB PO SCH ×2 (09:40→20:42)
[2018-08-27] MEDS: PANTOPRAZOLE SODIUM 40 MG TAB PO SCH (09:40)
[2018-08-27] MEDS: FAMOTIDINE 20 MG TAB PO SCH ×2 (09:40→20:41)
[2018-08-27] MEDS: BECLOMETHASONE QVAR 80 REDIHALER 120 INH/10.6 GM MDI IH SCH (10:23)
[2018-08-27] MEDS: ALBUTEROL 60 PUFFS/8 GM MDI IH PRN (10:23)
[2018-08-27] MEDS: METHOCARBAMOL 750 MG TAB PO PRN (15:14)
[2018-08-27] MEDS: PSYLLIUM METAMUCIL 1 PKT PO SCH (15:16)
--- NOTE | 2018-08-27 15:51 | ASMTCMCOM ---
CM Note CM Note Notes: [facility] denied my SNF referral for patient, I requested an appeal, and they denied this as well. I met with patient and explained this. I told her that we would help work toward discharge home with PT/OT and pain management while she is still here and order home care upon d/c. She was not pleased, nor was her mother, who I also spoke to. I offered Meals on Wheels; CM will need to order this when we know the d/c date. In the meantime, patient will work with nursing and therapies on being safe at home. Referral for home care sent to [facility] - we will request PT/OT/RN/CATERER'S AIDE/[employer]ER [employer]. Case Management will follow. Date Signed: 08/27/2018 03:51 PM Electronically Signed By:Iram Renner RN
--- NOTE | 2018-08-27 17:24 | PDMN ---
Medical Necessity Medical necessity: [facility] musculoskeletal disease Lumbar compression fx. 2 days status changed to INPT 08/27/18 for ongoing pain, back spasm req further monitoring.
[2018-08-27] MEDS: ASPIRIN 81 MG CHEWABLE TAB PO SCH (20:41)
[2018-08-27] MEDS: TRIFLUOPERAZINE HCL 5 MG TAB PO SCH (20:42)
[2018-08-28] MEDS: METHOCARBAMOL 750 MG TAB PO PRN ×3 (00:57→23:06)
[2018-08-28] MEDS: BECLOMETHASONE QVAR 80 REDIHALER 120 INH/10.6 GM MDI IH SCH ×3 (01:01→21:14)
[2018-08-28] MEDS: oxyCODONE IR 5 MG TAB PO PRN ×2 (04:28→07:56)
[2018-08-28] MEDS: LEVOTHYROXINE 88 MCG TAB PO SCH (05:19)
[2018-08-28] MEDS: ONDANSETRON DISINTEGRATING 4 MG TAB PO PRN ×2 (05:29→09:49)
[2018-08-28] MEDS: ACETAMINOPHEN 325 MG TAB PO SCH ×4 (06:13→23:06)
[2018-08-28] MEDS: ENOXAPARIN 40 MG/0.4 ML SYR SC SCH (07:58)
[2018-08-28] MEDS: ALBUTEROL 60 PUFFS/8 GM MDI IH PRN ×2 (09:01→21:14)
[2018-08-28] MEDS: FAMOTIDINE 20 MG TAB PO SCH ×2 (09:22→23:56)
[2018-08-28] MEDS: PSYLLIUM METAMUCIL 1 PKT PO SCH (09:22)
[2018-08-28] MEDS: PANTOPRAZOLE SODIUM 40 MG TAB PO SCH (09:22)
[2018-08-28] MEDS: SENNOSIDES/DOCUSATE SODIUM TAB PO SCH ×2 (09:22→23:57)
[2018-08-28] MEDS: HYDROCHLOROTHIAZIDE 25 MG TAB PO SCH (10:17)
[2018-08-28] MEDS: FLUoxetine 10 MG CAP PO SCH (10:17)
--- NOTE | 2018-08-28 10:44 | PDIAF ---
- Diagnosis Diagnosis: compression fracture Code Status: Full Code - Medication Management Discharge Medications: electronically signed and located in the Home Medication List. - Orders Services needed: Home Care, Registered Nurse, Certified Drag Down, Physical Therapy, Occupational Therapy Home Care Face to Face: I certify that this patient was under my care and that I had the required [id number] encounter meeting the encounter requirements on the discharge day. My findings support the fact that the patient is homebound as defined in Home Care Face to Face Continued: CMS Chapter 7 Medicare Benefits Manual 30.1.1 , The condition of the patient is such that there exists a normal inability to leave home and consequently, leaving home would require a considerable and taxing effort. Diet Recommendation: no restrictions on diet Diet Texture: Regular Texture Diet Additional Instructions: 1. Wear the Jewitt brace as prescribed. 2. Follow up with Dr. Ribera, neurosurgeon, in his office in the next week. 3. Return to the emergency department for severe pain, fever, numbness, difficulty walking, change in location or nature of pain or other concerns. - Follow Up Care Current Providers and Referrals: [facility] ,. [Edm Groups for Call Sched] - As per Instructions
--- NOTE | 2018-08-28 11:13 | ASMTLACE ---
CHIQUITA Length of stay for Answers: 2 days current admission Acuity / Level of Answers: No Care: Did the patient have an inpatient admission? Comorbidities - select Answers: Chronic pulmonary disease all that apply History of falls Other Notes: HTN, hypothyroid, asthm a, osteopenia # of Emergency department Answers: 3-4 visits in the last 6 months Social determinants Answers: Mental health diagnosis (anxiety, depression, pers onality disorders, etc.) Score: 14 Date Signed: 08/28/2018 11:12 AM Electronically Signed By:TYESHA Verdugo
--- NOTE | 2018-08-28 11:26 | GDS ---
DISCHARGE DIAGNOSES: 1. Acute L2-3 fracture, evaluated by Neurosurgery. 2. Osteoporosis. 3. Asthma. 4. Acute hypoxic respiratory failure. 5. Schizoaffective disorder. 6. Mesenteric calcification. 7. Hypothyroidism. 8. Hypertension. HISTORY OF PRESENT ILLNESS: A 67-year-old female with schizoaffective disorder and osteopenia, prese nting after a fall, with severe lower back pain. She got up to go to the bathroom and felt fine. Sh e slipped and fell on her tailbone. She hit her Life Alert bracelet, and EMS arrived. She did not h it her head. In the ED, imaging showed L2-L3 vertebral compression fractures. Neurosurgery was consulted, who rec ommended a [place] brace and to follow up with Dr. Ribera. She was admitted secondary to inability to ambulate secondary to pain. HOSPITAL COURSE BY PROBLEM: 1. L2-L3 vertebral compression fracture: She will be discharged home with a Erik brace and follow up with Dr. Ribera. Pain control with p.r.n. oxycodone, alternating Tylenol, Advil and Robaxin. PT evaluated, initially recommended SNF; however, she improved. I discussed the case with physician at [facility], stating she did not qualify SNF, thus, will arrange for home PT, OT, DAG COATER, and nurse. 2. Osteoporosis, new diagnosis with compression fracture from standing height. Her vitamin D is low normal but will treat with ergocalciferol. Needs a repeat vitamin D in 4-6 weeks. 3. Asthma inhalers. 4. Hypertension, home medications. 5. Schizoaffective disorder, home meds. 6. Hypothyroidism. 7. Mesenteric calcification. This was noted on CT. Differential includes mesenteritis and pannicul itis versus carcinoid tumor. Recommend followup with PCP for carcinoid evaluation. DISPOSITION: Patient is stable for discharge home with home care and physical therapy. NEW MEDICATIONS: See medication reconciliation. FOLLOWUP: 1. Dr. Ribera. 2. Primary care physician at [facility]. 3. Mesenteric calcification: Consider carcinoid tumor workup. 4. Vitamin D level in 4-6 weeks. PHYSICAL EXAMINATION: VITAL SIGNS: Today, temperature 36.6, blood pressure 144/88, heart rate in th e 80s to 90s, respirations 14, 93% on room air. GENERAL: She is mildly anxious, but in no acute dis tress. HEENT: PERRLA. Moist mucous membranes. CV: Regular rate and rhythm. LUNGS: Clear. ABDO MEN: Soft, nontender, nondistended. Positive bowel sounds. : No Street. MUSCULOSKELETAL: She h as a [place] brace in place. She is moving all 4 extremities. Normal sensation to touch. PSYCH: Betty burdick is anxious and tearful. Time spent on discharge: Greater than 30 minutes at bedside counseling patient on pain control, home care, and followup plan. /[id number]/MODL
[2018-08-28] MEDS: LIDOCAINE 4%/MENTHOL 1% PATCH TD SCH (12:48)
[2018-08-28] MEDS ORDERED: PROMETHAZINE HCL 25 MG/ML INJ IVP PRN (15:31)
--- NOTE | 2018-08-28 15:35 | ASMTCMCOM ---
CM Note CM Note Notes: Pt has d/c order, pt reports she has someone who will be able to picker tender helper DME. PT Amairani also found pt a walker. HHC orders sent to [facility] in [employer]. Pt medically stable for d/c with HHC and Meals on Wheels. Pt did throw up and is not feeling well since d/c order in so she may also stay. Date Signed: 08/28/2018 03:35 PM Electronically Signed By:TYESHA Verdugo
[2018-08-28] MEDS ORDERED: HYDROmorphONE/DILAUDID 1 MG/ML INJ IVP PRN (15:52)
--- NOTE | 2018-08-28 15:52 | HOSPPROG ---
Hospitalist Progress Note Assessment/Plan: #Acute L2-3 fracture -no surgical intervention, Jewitt brace -spoke with Dr at [facility]; not candidate for rehab. They will arrange home therapies, DEMOND, RN -add Robaxin. JEANNA Ribera #Nausea: add IV phengren #Osteoporosis -high-dose Vit D #Asthma: no exacerbation #Acute hypoxic resp failure #Schizoaffective d/o: home meds #Mesenteric calcification #Hypothyroidism: LT4 #HTN: BP ok here, not on outpatient meds #Diet: regular #Disp: DC canceled due to uncontrolled nausea. Add IV phene Additional direct care spent: 30min bedside with pt and mother. Reevaluating nausea/pain (16:00-16:30) Subjective: pain lower back Objective: Vital Signs Temp Pulse Resp BP Pulse Ox 36.3 C 95 15 144/88 H 93 08/28/18 08:00 08/28/18 09:02 08/28/18 09:02 08/28/18 10:17 08/28/18 09:02 08/27/18 08/28/18 08/29/18 05:59 05:59 05:59 Intake Total 1300 500 Output Total 1350 900 Balance -50 -400 - Time Spent With Patient Time Spent with Patient: greater than 35 minutes Time Spent with Patient: Greater than 35 minutes spent on this patients care, greater than 50% of time spent counseling, educating, and coordinating care regarding the above mentioned plan. - Physical Exam Constitutional: no apparent distress Eyes: PERRL Ears, Nose, Mouth, Throat: moist mucous membranes Cardiovascular: regular rate and rhythym Respiratory: no respiratory distress Gastrointestinal: normoactive bowel sounds Musculoskeletal: full muscle strength, other (Jewitt brace on) Neurologic: AAOx3 Psychiatric: interacting appropriately ICD10 Worksheet Patient Problems: Problems Problem Status Onset Compression fracture of L2 Acute Compression fracture of L3 lumbar vertebra Acute Unable to ambulate Acute
[2018-08-28] MEDS ORDERED: NS 1,000 ML IV SCH (16:00)
[2018-08-28] MEDS: KETOROLAC 15 MG/1 ML SDV IVP PRN ×2 (16:17→23:06)
[2018-08-28] MEDS: D5W NS 1,000 ML IV SCH (16:33)
[2018-08-28] MEDS: TRIFLUOPERAZINE HCL 5 MG TAB PO SCH (20:27)
[2018-08-28] MEDS ORDERED: PATCH REMOVAL 1 EA PATCH TD SCH (21:00)
[2018-08-29] MEDS: D5W NS 1,000 ML IV SCH (02:57)
[2018-08-29] MEDS: LEVOTHYROXINE 88 MCG TAB PO SCH (06:22)
[2018-08-29] MEDS: ACETAMINOPHEN 325 MG TAB PO SCH ×2 (06:22→13:45)
[2018-08-29] MEDS: oxyCODONE IR 5 MG TAB PO PRN ×3 (06:23→13:48)
[2018-08-29 08:40] VITALS: BP 128/75
[2018-08-29] MEDS: ALBUTEROL 60 PUFFS/8 GM MDI IH PRN (10:10)
[2018-08-29] MEDS: BECLOMETHASONE QVAR 80 REDIHALER 120 INH/10.6 GM MDI IH SCH (10:11)
[2018-08-29] MEDS: FLUoxetine 10 MG CAP PO SCH (10:21)
[2018-08-29] MEDS: SENNOSIDES/DOCUSATE SODIUM TAB PO SCH (10:22)
[2018-08-29] MEDS: ENOXAPARIN 40 MG/0.4 ML SYR SC SCH (10:23)
[2018-08-29] MEDS: PSYLLIUM METAMUCIL 1 PKT PO SCH (10:23)
[2018-08-29] MEDS: HYDROCHLOROTHIAZIDE 25 MG TAB PO SCH ×2 (10:23→10:28)
[2018-08-29] MEDS: FAMOTIDINE 20 MG TAB PO SCH (10:23)
[2018-08-29] MEDS: PANTOPRAZOLE SODIUM 40 MG TAB PO SCH (10:23)
[2018-08-29] MEDS: LIDOCAINE 4%/MENTHOL 1% PATCH TD SCH (10:24)
--- NOTE | 2018-08-29 12:57 | PDIAF ---
- Diagnosis Diagnosis: compression fracture Code Status: Full Code - Medication Management Discharge Medications: electronically signed and located in the Home Medication List. - Orders Services needed: Home Care, Registered Nurse, Certified Electric Installer, Physical Therapy, Occupational Therapy Home Care Face to Face: I certify that this patient was under my care and that I had the required [id number] encounter meeting the encounter requirements on the discharge day. My findings support the fact that the patient is homebound as defined in Home Care Face to Face Continued: CMS Chapter 7 Medicare Benefits Manual 30.1.1 , The condition of the patient is such that there exists a normal inability to leave home and consequently, leaving home would require a considerable and taxing effort. Diet Recommendation: no restrictions on diet Diet Texture: Regular Texture Diet Additional Instructions: 1. Wear the Jewitt brace as prescribed. (when out of bed - Ok to take off for showers, but DO NOT bend at the waist. 2. Follow up with Dr. Ribera, neurosurgeon or call your primary doctor for a referral to orthopedic or Neurosurgeon 3. Return to the emergency department for severe pain, fever, numbness, difficulty walking, change in location or nature of pain or other concerns. You can buy Lidoderm patches for pain [id number] at your pharmacy. - Follow Up Care Current Providers and Referrals: Gabriele Ribera MD [Medical Doctor] - [facility] ,. [Edm Groups for Call Sched] - As per Instructions
--- NOTE | 2018-08-29 14:01 | ASMTCMCOM ---
CM Note CM Note Notes: Pt did not d/c yesterday, will d/c today. Orders sent to [facility] via [employer] and they were updated with call. Date Signed: 08/29/2018 02:01 PM Electronically Signed By:TYESHA Verdugo
--- NOTE | 2018-08-29 15:25 | ASDISCHSUM ---
Discharge Information Plan Status:Home with Home Health Medically Cleared to Leave: Discharge Date:08/29/2018 02:58 PM CM D/C [facility]position: [facility] Projected Discharge Date:08/28/2018 11:00 AM Transportation at D/C: Discharge Delay Reason: Follow-Up Date:08/28/2018 11:00 AM Discharge Slot: Final Diagnosis: Placement Information Referral Type:*Retirement/SNF Referral ID:[id number] Provider Name: Address 1: Phone Number: Address 2: Fax Number: City: Selection Factors: State: Referral Type:*Home Health Care Services Referral ID:[id number] Provider Name:[facility] Address 1:[address] Address 2: City:[place] Selection Factors: State:[place] Patient Contact Information Contact Name:ARIATAM Relationship:Mother Address:[address] Work Phone: City:[facility] Phone: State/Zip Code:[place] [address] Email: Financial Information Financial Class:Medicare Advantage Plans Primary Plan Desc:[employer] [employer]ARE ADV IP Primary Plan Number:[id number] Secondary Plan Desc: Secondary Plan Number: Assessment Information [facility] CM Progress Note CM Note CM Note Notes: Pt presented to the ED via EMS after having a fall at home this morning. Per EMS, pt had slipped off of the toilet and landed on her sacrum. Pt admitted for acute L2-L3 compression fracture and inability to ambulate due to pain. Pt was fit w/a Jewitt brace while in the ED. Per chart review, if pt's pain or ability to ambulate does not improve, may consider vertebroplasty/kyphoplasty. Pt lives alone in an apartment at [facility]. Pt has a history of schizoaffective disorder, hypothyroidism, HTN, osteopenia, and asthma. In March 2018, pt had a mechanical fall that resulted in left humeral neck fracture. Pt had reported at that time that she has had had previous falls as well. We discussed the possibility of pt returning home w/a combination of skilled and non-skilled HC but pt states she would not be able to afford the non-skilled help she feels she needs, and she overall does not feel safe returning home even if her elderly mother, Pauline Soliman (c:[phone]) came to stay with her overnight. Pauline lives in [place] and is currently on her way to [facility]. Pt has [facility] insurance and was hoping to be transferred for admission to [facility] but per ED MD who spoke w/Caren at [facility], they did not approve the transfer but they did approve pt to be admitted at [facility]. PT/OT christian ordered. Exact DC needs TBD but anticipate pt to either DC home w/HC or to SNF rehab. CM to follow. Date Signed: 08/25/2018 03:48 PM Electronically Signed By:Danielle Johnson RN LACE LACE Length of stay for Answers: 2 days current admission Acuity / Level of Answers: No Care: Did the patient have an inpatient admission? Comorbidities - select Answers: Chronic pulmonary disease all that apply History of falls Other Notes: HTN, hypothyroid, asthm a, osteopenia # of Emergency department Answers: 3-4 visits in the last 6 months Social determinants Answers: Mental health diagnosis (anxiety, depression, pers onality disorders, etc.) Score: 14 Date Signed: 08/28/2018 11:12 AM Electronically Signed By:TYESHA Verdugo [facility] CM Progress Note CM Note CM Note Notes: [facility] denied my SNF referral for patient, I requested an appeal, and they denied this as well. I met with patient and explained this. I told her that we would help work toward discharge home with PT/OT and pain management while she is still here and order home care upon d/c. She was not pleased, nor was her mother, who I also spoke to. I offered Meals on Wheels; CM will need to order this when we know the d/c date. In the meantime, patient will work with nursing and therapies on being safe at home. Referral for home care sent to [facility] - we will request PT/OT/RONN/DEMOND/TYESHA. Case Management will follow. Date Signed: 08/27/2018 03:51 PM Electronically Signed By:Iram Renner RN [facility] CM Progress Note CM Note CM Note Notes: Pt has d/c order, pt reports she has someone who will be able to sheepskin pickler DME. PT Amairani also found pt a walker. HHC orders sent to [facility] in [employer]. Pt medically stable for d/c with HHC and Meals on Wheels. Pt did throw up and is not feeling well since d/c order in so she may also stay. Date Signed: 08/28/2018 03:35 PM Electronically Signed By:TYESHA Verdugo [facility] CM Progress Note CM Note CM Note Notes: Pt did not d/c yesterday, will d/c today. Orders sent to [facility] via [employer] and they were updated with call. Date Signed: 08/29/2018 02:01 PM Electronically Signed By:TYESHA Verdugo [facility]
--- NOTE | 2018-08-29 16:37 | GDS ---
DISCHARGE DIAGNOSES: 1. Acute L2-L3 fracture. 2. Newly diagnosed osteoporosis 3. Nausea. 4. Asthma. 5. Acute hypoxic respiratory failure. 6. Schizoaffective disorder. 7. Mesenteric calcification. 8. Hypothyroidism. 9. Hypertension. Please see discharge summary dated 08/28 for full assessment and plan. Patient stayed overnight due to persistent nausea and vomiting that has since resolved. She should follow up with her primary care physician at [facility] for a referral to Neurosurgery or Orthopedics for her compression fracture. Jewiitt brace. PT/ OT and home care coordinated. PHYSICAL EXAMINATION: VITAL SIGNS: Today, temperature 36.7, blood pressure 128 /75, heart rate in the 80s, respirations 16, 93% on room air. GENERAL: She is brighter today, smiling, no acute distress. HEENT: PERRLA. Moist mucous membranes. CV: Regular rate and rhythm. LUNGS: Clear. ABDOMEN: Soft, nontender, nondistended. Positive bowel sounds. MUSCULOSKELETAL: She is in a Erik brace, 5/5 upper/lower extremity strength. NEURO: 2 through 12 intact. PSYCH: Alert and oriented x3. Time spent on discharge greater than 30 minutes coordinating with Case Management, arranging home cares, and discussing followup plan with the patient. /[id number]/MODL MTDD
== END 2018-08-29 14:58 | disposition home health service (06) | DRG 551 ==
LOC: EDUNIT# → INTOOBSV 12:40 → F3N 13:26 → OBSVTOIN 08-27 17:00
PROVIDERS: ADMIT Internal Medicine; ATTEND Internal Medicine
PROC: 2W35X3Z Immobilization of Back using Brace (ICD-10-PCS; principal; 2018-08-25)
DX: S32.020A Wedge compression fracture of second lumbar vertebra, initial encounter for closed fracture (principal); S32.030A Wedge compression fracture of third lumbar vertebra, initial encounter for closed fracture; W01.0XXA Fall on same level from slipping, tripping and stumbling without subsequent striking against object, initial encounter; Y92.012 Bathroom of single-family (private) house as the place of occurrence of the external cause; J96.01 Acute respiratory failure with hypoxia; E03.9 Hypothyroidism, unspecified; I10 Essential (primary) hypertension; J45.909 Unspecified asthma, uncomplicated; F25.9 Schizoaffective disorder, unspecified; M81.0 Age-related osteoporosis without current pathological fracture; R11.0 Nausea; R94.8 Abnormal results of function studies of other organs and systems; Z79.51 Long term (current) use of inhaled steroids
CPT/HCPCS: 96374; 97116-GP; 97161-GP; 97166-GO; 97530-GP; 97535-GO; G0378; J1170; J1650; J1885; J2405; J2550; J3010